=== PATIENT | female | born 1945 | race Two or more races ===

== ENCOUNTER 2017-12-03 10:07 | Emergency (ER) | payer OTHER ==
[~2017-12-03] VITALS: Ht 160 cm; Wt 63.5 kg
[~2017-12-03 10:07] MED LIST: NITROFURANTOIN100 M2 PO; PRILOSEC10 MG; REGLAN5 MG/5 ML
[2017-12-03] MEDS ORDERED: BIOTIN1 M1 PO (10:34)
== END 2017-12-03 14:02 | disposition home or self-care (01) ==
LOC: ER 10:07
DX: H57.11 Ocular pain, right eye (principal)

== ENCOUNTER 2018-02-14 10:47 | Emergency (ER) | payer OTHER ==
[~2018-02-14] VITALS: Ht 160 cm; Wt 63.5 kg
[~2018-02-14 10:47] MED LIST changes: +BIOTIN1 M1 PO
== END 2018-02-14 14:38 | disposition home or self-care (01) ==
LOC: ER 10:47
DX: J45.998 Other asthma (principal)

== ENCOUNTER → 2021-01-01 | Emergency (ER) | payer OTHER ==
[~2021-01-01] VITALS: Ht 160 cm; Wt 57.2 kg
[~2021-01-01] MED LIST changes: +SINGULAIR5 MG PO
== END | disposition home or self-care (01) ==
LOC: ER 10:49
DX: B37.3 Candidiasis of vulva and vagina (principal)

== ENCOUNTER → 2021-02-11 | Outpatient (CLI) | payer OTHER | END | disposition home or self-care (01) | LOC: MAMO-SONO 11:37 | PROVIDERS: ATTEND Internal Medicine Cardiovascular Disease | DX: N64.59 Other signs and symptoms in breast (principal) ==

== ENCOUNTER 2023-02-09 11:53 | Outpatient (CLI) | payer OTHER | END 2023-02-09 12:05 | disposition home or self-care (01) | LOC: MRI 11:53 | PROVIDERS: ATTEND Internal Medicine Cardiovascular Disease | DX: M46.47 Discitis, unspecified, lumbosacral region (principal) | CPT/HCPCS: 72148 ==

== ENCOUNTER 2023-03-17 11:45 | Outpatient (CLI) | payer OTHER | END 2023-03-17 11:54 | disposition home or self-care (01) | LOC: RAD 11:45 | PROVIDERS: ATTEND Internal Medicine Cardiovascular Disease | DX: M12.9 Arthropathy, unspecified (principal); M46.47 Discitis, unspecified, lumbosacral region ==

== ENCOUNTER 2023-04-01 11:39 | Outpatient (CLI) | payer OTHER | END 2023-04-01 11:46 | disposition home or self-care (01) | LOC: MRI 11:39 | PROVIDERS: ATTEND Anesthesiology Pain Medicine | DX: M50.123 Cervical disc disorder at C6-C7 level with radiculopathy (principal); M13.0 Polyarthritis, unspecified; G56.02 Carpal tunnel syndrome, left upper limb; G56.01 Carpal tunnel syndrome, right upper limb | CPT/HCPCS: 72141 ==

== ENCOUNTER 2023-04-21 11:08 | Outpatient (CLI) | payer OTHER | END 2023-04-21 11:21 | disposition home or self-care (01) | LOC: RAD 11:08 | PROVIDERS: ATTEND Neurological Surgery | DX: M43.16 Spondylolisthesis, lumbar region (principal); M43.17 Spondylolisthesis, lumbosacral region; M25.511 Pain in right shoulder | CPT/HCPCS: 73218 ==

== ENCOUNTER 2023-04-30 11:31 | Outpatient (CLI) | payer OTHER | END 2023-04-30 11:42 | disposition home or self-care (01) | LOC: MRI 11:31 | PROVIDERS: ATTEND Orthopaedic Surgery | DX: M25.512 Pain in left shoulder (principal); M75.122 Complete rotator cuff tear or rupture of left shoulder, not specified as traumatic | CPT/HCPCS: 73221; 73721 ==

== ENCOUNTER 2023-05-04 09:00 | Outpatient (CLI) | payer OTHER | END 2023-05-04 09:05 | disposition home or self-care (01) | LOC: MRI 09:00 | PROVIDERS: ATTEND Orthopaedic Surgery | DX: M25.561 Pain in right knee (principal); M25.562 Pain in left knee | CPT/HCPCS: 73721 ==

== ENCOUNTER 2023-05-21 10:20 | Outpatient (CLI) | payer OTHER | END 2023-05-21 10:31 | disposition home or self-care (01) | LOC: RAD 10:20 | PROVIDERS: ATTEND Orthopaedic Surgery | DX: M75.121 Complete rotator cuff tear or rupture of right shoulder, not specified as traumatic (principal) ==

== ENCOUNTER 2024-05-14 13:51 | Emergency (ER) | payer OTHER ==
[~2024-05-14] VITALS: Ht 157.5 cm; Wt 63.5 kg
[2024-05-14] MEDS ORDERED: GUAIFENESIN 200 MG/10 ML BLIST.PACK PO STA (15:23)
[2024-05-14] MEDS ORDERED: LEVALBUTEROL HCL 1.25 MG/3 ML SOLUTION IH SCH (15:30)
[2024-05-14] MEDS ORDERED: BUDESONIDE 0.5 MG/2 ML AMPUL.NEB IH SCH (15:30)
[2024-05-14] MEDS ORDERED: IPRATROPIUM BROMIDE 0.5 MG/2.5 ML AMPUL.NEB IH SCH (15:30)
[2024-05-14 15:52] LABS: HEMATOCRIT 39.9 % (36.0-45.00); HEMOGLOBIN 13.5 g/dL (12.0-15.00); MEAN CELL VOLUME 86.7 fL (80.00-100.00); MEAN CORPUSCULAR HEMOGLOBIN 29.4 pg (27.00-32.0); MEAN CORPUSCULAR HGB CONC 33.9 g/dl (32.0-36.0); PLATELET COUNT 214 K/uL (150-450); RED CELL DISTRIBUTION WIDTH 13.4 % (11.5-14.5)
[2024-05-14 16:27] LABS: CALCIUM 9.5 mg/dL (8.5-10.1); CREATININE SERUM 0.89 mg/dL (0.55-1.02); GFR 61.67; POTASSIUM 5.86 mEq/L (3.5-5.1)
== END 2024-05-14 17:34 | disposition home or self-care (01) ==
LOC: ER 13:54
PROVIDERS: General Practice
DX: J06.9 Acute upper respiratory infection, unspecified (principal); J45.991 Cough variant asthma; Z20.822 Contact with and (suspected) exposure to COVID-19; Z88.2 Allergy status to sulfonamides